=== PATIENT | female | born 1970 | race American Indian/Alaskan Native ===

== ENCOUNTER 2016-06-15 18:21 | Emergency (ER) | payer MEDICAID ==
[2016-06-15 18:51] VITALS: RESP 20
[2016-06-15] MEDS ORDERED: Sodium Chloride 0.9% 500 ML IV ONE ×2 (19:04→20:35)
[2016-06-15] MEDS ORDERED: Sodium Chloride 0.9% 1,000 ML ONE ×2 (19:11→21:00)
[2016-06-15 19:25] LABS: BASO # 0.1 K/uL (0.0-0.2); BASO % 0.7 % (0.0-2.0); EOS # 0.1 K/uL (0.0-0.7); EOS % 0.8 % (0.0-4.0); HEMATOCRIT 36.6 % (34.0-47.0); LYMPH # 3.9 K/uL (1.0-4.3); LYMPH % 28.6 % (20.0-40.0); MEAN CELL VOLUME 90.3 fL (81.0-99.0); MEAN CORPUSCULAR HEMOGLOBIN 30.5 pg (27.0-31.0); MEAN CORPUSCULAR HGB CONC 33.8 g/dL (33.0-37.0); MEAN PLATELET VOLUME 9.2 fL (7.2-11.7); MONO # 0.7 K/uL (0.0-0.8); MONO % 5.2 % (0.0-10.0); RED CELL DISTRIBUTION WIDTH 13.7 % (11.5-14.5); WHITE BLOOD COUNT 13.6 K/uL (4.8-10.8)
[2016-06-15 19:32] LABS: CHLORIDE 98 mmol/L (98-107)
[2016-06-15 19:33] LABS: POTASSIUM 3.5 mmol/L (3.6-5.2); SODIUM 136 mmol/L (132-148)
[2016-06-15 19:35] LABS: ALB/GLOB RATIO 1.3 (1.0-2.1); AST/SGOT 15 U/L (14-36); BILIRUBIN,TOTAL 0.6 mg/dL (0.2-1.3); CARBON DIOXIDE 26 mmol/L (22-30); GFR AFRICAN-AMERICAN > 60; TOTAL PROTEIN 7.4 g/dL (6.3-8.3)
[2016-06-15 19:36] LABS: ALKALINE PHOSPHATASE 127 U/L (38-126); ALT/SGPT 20 U/L (9-52); BLOOD UREA NITROGEN 9 mg/dL (7-17); CALCIUM 9.1 mg/dl (8.6-10.4); GLUCOSE,RANDOM 178 mg/dL (65-105)
--- NOTE | 2016-06-15 21:04 | C.PDOC ---
History Of Present Illness 45 year old female presents to the ED with complaints of intermittent dizziness for the past 2 months. Patient describes the dizziness as the room spinning around her and notes she was seen 4 times at [facility] [place]. She had a CT scan of the head last Sunday that was "normal". She was given Meclizine Rx which she has finished and reports it did not provide much relief. Patient has not yet followed up with ENT or Neuro. She denies visual changes, facial droop, slurred speech, extremity weakness, sensory changes, fever, neck pain, chest pain, SOB. Time Seen by Provider: 06/15/16 18:27 Chief Complaint (Nursing): Dizziness/Lightheaded History Per: Patient History/Exam Limitations: no limitations Onset/Duration Of Symptoms: Days Current Symptoms Are (Timing): Still Present Seizure Or Post-ictal Symptoms: None Fall Associated With With Symptoms: No Severity: Mild Past Medical History Reviewed: Historical Data, Nursing Documentation, Vital Signs Vital Signs: Last Vital Signs Temp 98 F 06/15/16 22:29 Pulse 99 H 06/15/16 22:29 Resp 20 06/15/16 22:29 BP 122/75 06/15/16 22:29 Pulse Ox 100 06/15/16 22:29 - Medical History PMH: HTN Family History: States: No Known Family Hx - Social History Hx Alcohol Use: Yes Hx Substance Use: No - Immunization History Hx Tetanus Toxoid Vaccination: No Hx Influenza Vaccination: No Hx Pneumococcal Vaccination: No Review Of Systems Except As Marked, All Systems Reviewed And Found Negative. Constitutional: Negative for: Fever, Chills Cardiovascular: Negative for: Chest Pain, Palpitations Respiratory: Negative for: Cough, Shortness of Breath Gastrointestinal: Negative for: Nausea, Vomiting, Abdominal Pain, Diarrhea Neurological: Positive for: Dizziness. Negative for: Weakness, Numbness, Seizures, Altered Mental Status, Headache Physical Exam - Physical Exam Appears: Well, Non-toxic, No Acute Distress Skin: Normal Color, Warm, Dry, Other (inferior to left axilla - gaping open surgical wound with stanislav at periphery, no erythema/discharge, approx 6cm in diameter) Head: Atraumatic, Normacephalic Eye(s): bilateral: Normal Inspection, PERRL, EOMI, Other (No nystagmus) Oral Mucosa: Moist Neck: Normal, Normal ROM, No Midline Cervical Tenderness, No Paracervical Tenderness, No Step Off Deformity, Supple Chest: Symmetrical, No Deformity Cardiovascular: Rhythm Regular, No Murmur Respiratory: Normal Breath Sounds, No Accessory Muscle Use, No Rales, No Rhonchi , No Wheezing Extremity: Normal ROM, No Deformity Neurological/Psych: Oriented x3, Normal Speech, Normal Cognition, Normal Cranial Nerves, No Cerebellar Signs, Normal Motor, Normal Sensation ED Course And Treatment - Laboratory Results Result Diagrams: 06/15/16 19:21 06/15/16 19:21 O2 Sat by Pulse Oximetry: 99 (Room air) Pulse Ox Interpretation: Normal Progress Note: Blood work ordered and reviewed. Patient given PO Meclizine, IV NS bolus, and then IV Ativan. Patient then began to mention surgical wound below left axilla, s/p I&D at [facility] by surgeon - states the wound opened up. Patient's wound evaluated by residential program director, who removed stanislav and recommends medihoney and for patient to follow up with her surgeon within 1 week. Reevaluation Time: 22:00 Reassessment Condition: Improved (On reassessment, patient states her vertigo symptoms have improved and she feels better. Surgical wound dressed by ED nurse. Patient able to ambulate normally in the ED. She was given Rx for ativan PO, and instructed to follow up with ENT & neurology within 1 week. She was also instructed to follow up with her surgeon for further eval of her surgical wound. Patient instructed to return to ED if symptoms worsen.) Disposition Counseled Patient/Family Regarding: Studies Performed, Diagnosis, Need For Followup, Rx Given - Disposition Referrals: Wero Hope MD [Staff Provider] - Solange Alcantara MD [Staff Provider] - Disposition: HOME/ ROUTINE Disposition Time: 22:00 Condition: STABLE Additional Instructions: FOLLOW UP WITH SURGEON THAT DID YOUR ABSCESS SURGERY AT [facility] FOLLOW UP WITH [facility] WITHIN 1 WEEK RETURN TO ER IF SYMPTOMS WORSEN Prescriptions: Lorazepam [Ativan] 0.5 mg PO TID PRN #12 tab PRN Reason: vertigo Honey [Medihoney] 5 ml TP BID #1 bottle Ondansetron [Zofran Odt] 4 mg PO Q8 PRN #10 odt PRN Reason: Nausea/Vomiting Instructions: Benign Paroxysmal Positional Vertigo (ED), Acute Wound Care (ED) Forms: Work Excuse Print Language: SWAZI - POA Present On Arrival: None - Clinical Impression Clinical Impression: Peripheral vertigo, Surgical wound dehiscence - Scribe Statement The provider has reviewed the documentation as recorded by the Scribe Snow Gregory. Provider Attestation: All medical record entries made by the Scribe were at my direction and personally dictated by me. I have reviewed the chart and agree that the record accurately reflects my personal performance of the history, physical exam, medical decision making, and the department course for this patient. I have also personally directed, reviewed, and agree with the discharge instructions and disposition.
[2016-06-15 22:30] VITALS: BP 122/75; PULSE 99; TEMP 98
[2016-06-20 13:13] VITALS: O2SAT 99
== END 2016-06-15 22:29 | disposition home or self-care (01) ==
LOC: C.ER 18:21
DX: H81.399 Other peripheral vertigo, unspecified ear (principal); T81.31XA Disruption of external operation (surgical) wound, not elsewhere classified, initial encounter; Y83.8 Other surgical procedures as the cause of abnormal reaction of the patient, or of later complication, without mention of misadventure at the time of the procedure
CPT/HCPCS: 80053; 82948; 85025; 96361; 96374; 99285; J2060; J7040

== ENCOUNTER 2018-06-09 16:22 | Emergency (ER) | payer MEDICAID ==
[2018-06-09 16:45] VITALS: TEMP 99
--- NOTE | 2018-06-09 17:06 | C.PDOC ---
History Of Present Illness 47 y/o female with chief complaints of not feeling right. Patient presents to ED stating she has not been feeling right for the past 2 weeks. She reports she sometimes feels lightheaded and ears feel clogged. Patient denies fever, chest pain, SOB, nausea, vomiting, or other complaints. Patient was seen by her PMD and had bloodwork done. Time Seen by Provider: 06/09/18 16:45 Chief Complaint (Nursing): Dizziness/Lightheaded History Per: Patient History/Exam Limitations: no limitations Onset/Duration Of Symptoms: Days Current Symptoms Are (Timing): Still Present Past Medical History Reviewed: Historical Data, Nursing Documentation, Vital Signs Vital Signs: Last Vital Signs Temp 99 F 06/09/18 16:32 Pulse 64 06/09/18 16:32 Resp 18 06/09/18 16:32 BP 129/69 06/09/18 16:32 Pulse Ox 99 06/09/18 16:32 - Medical History PMH: Graves' Disease, HTN, Hyperlipidemia Family History: States: No Known Family Hx - Social History Hx Tobacco Use: No Hx Alcohol Use: Yes Hx Substance Use: No - Immunization History Hx Tetanus Toxoid Vaccination: No Hx Influenza Vaccination: No Hx Pneumococcal Vaccination: No Review Of Systems Except As Marked, All Systems Reviewed And Found Negative. Constitutional: Negative for: Fever ENT: Positive for: Other (Ears "clogged") Cardiovascular: Positive for: Light Headedness. Negative for: Chest Pain Respiratory: Negative for: Shortness of Breath Gastrointestinal: Negative for: Nausea, Vomiting Physical Exam - Physical Exam Appears: Non-toxic, No Acute Distress Skin: Warm, Dry Head: Atraumatic Eye(s): bilateral: Normal Inspection, PERRL, EOMI Ear(s): Bilateral: Normal Oral Mucosa: Moist Throat: Normal Neck: Supple Chest: Symmetrical Cardiovascular: Rhythm Regular, No Murmur Respiratory: Normal Breath Sounds, No Rales, No Rhonchi, No Wheezing Gastrointestinal/Abdominal: Soft, No Tenderness Back: Normal Inspection, No CVA Tenderness Extremity: Normal ROM, No Pedal Edema Extremity: Bilateral: Atraumatic Neurological/Psych: Oriented x3, Normal Speech, Normal Cognition ED Course And Treatment - Laboratory Results Result Diagrams: 06/09/18 17:10 06/09/18 17:10 ECG: Interpreted By Me, Viewed By Me ECG Rhythm: Sinus Bradycardia Interpretation Of ECG: No ST elevation. QT normal. Rate From EC O2 Sat by Pulse Oximetry: 99 (RA) Pulse Ox Interpretation: Normal Medical Decision Making Medical Decision Making: Plan: --EKG --Labs --Urine Culture --UA Disposition Counseled Patient/Family Regarding: Studies Performed, Diagnosis, Need For Followup - Disposition Referrals: Dipika Garduno MD [Medical Doctor] - Disposition: HOME/ ROUTINE Disposition Time: 18:25 Condition: STABLE Prescriptions: Meclizine [Antivert] 25 mg PO Q6 #21 tab Instructions: Fatigue (DC), Weakness (ED) Forms: General Discharge Instructions, [facility] (Hebrew), Work Excuse - Clinical Impression Clinical Impression: Generalized weakness - Scribe Statement The provider has reviewed the documentation as recorded by the Shelia Tinsley Provider Attestation: All medical record entries made by the Elderibe were at my direction and personally dictated by me. I have reviewed the chart and agree that the record accurately reflects my personal performance of the history, physical exam, medical decision making, and the department course for this patient. I have also personally directed, reviewed, and agree with the discharge instructions and disposition.
[2018-06-09 17:16] LABS: BASO # 0.1 K/uL (0.0-0.2); BASO % 0.6 % (0.0-2.0); EOS # 0.1 K/uL (0.0-0.7); LYMPH % 25.4 % (20.0-40.0); MEAN CELL VOLUME 91.4 fL (81.0-99.0); MEAN PLATELET VOLUME 10.1 fL (7.2-11.7); MONO # 0.5 K/uL (0.0-0.8); MONO % 4.5 % (0.0-10.0); NEUT # 8.1 K/uL (1.8-7.0); NEUT % 68.5 % (50.0-75.0); RBC 3.87 Mil/uL (3.80-5.20); WHITE BLOOD COUNT 11.8 K/uL (4.8-10.8)
[2018-06-09 17:33] LABS: ALB/GLOB RATIO 1.5 (1.0-2.1); ALBUMIN 4.1 g/dL (3.5-5.0); AST/SGOT 15 U/L (14-36); BLOOD UREA NITROGEN 8 mg/dL (7-17); CALCIUM 9.4 mg/dl (8.6-10.4); GFR NON-AFRICAN AMERICAN > 60
[2018-06-09 17:45] LABS: SQUAMOUS EPITHIAL 3 /hpf (0-5)
[2018-06-09 17:46] LABS: ALT/SGPT < 6 U/L (9-52)
[2018-06-09 17:47] LABS: URINE BILIRUBIN NEGATIVE (NEGATIVE); URINE BLOOD TRACE (NEGATIVE); URINE CLARITY CLEAR (Clear); URINE COLOR YELLOW (YELLOW); URINE GLUCOSE (UA) NEG (Normal); URINE LEUKOCYTE ESTERASE NEG Leu/uL (Negative); URINE PROTEIN NEGATIVE (NEGATIVE); URINE UROBILINOGEN 0.2 mg/dL (0.2-1.0)
[2018-06-09 18:32] VITALS: BP 115/71; PULSE 61; RESP 19
[2018-06-09 18:34] VITALS: O2SAT 99
--- NOTE | 2018-06-10 08:40 | RAD ---
Chest x-ray single frontal view HISTORY: Weakness. COMPARISON: None available. FINDINGS: No focal infiltrate or effusion. Nodular densities at the lung bases likely represent nipple shadows. Bibasilar breast and nipple shadows. Tortuous ectatic aorta. Top normal heart size. Degenerative changes in the spine. IMPRESSION: No focal infiltrate or effusion.
--- NOTE | 2018-06-10 15:06 | CARD ---
APPROVED REPORT Date of service: 06/09/2018 EKG Measurement Heart [id number] <Conclusion> Poor data quality, interpretation may be adversely affected Sinus bradycardia Otherwise normal ECG
== END 2018-06-09 19:00 | disposition home or self-care (01) ==
LOC: C.ER 16:22
DX: R53.1 Weakness (principal)